=== PATIENT | male | born 1955 | race Caucasian/White ===

== ENCOUNTER 2016-05-18 09:22 | Day surgery (SDC) | payer BC ==
[2016-05-16 15:33] VITALS: BMI 25.1
[~2016-05-18 09:22] MED LIST: DEXAMETHASONE SOD PHOSPHATE 10 MG/ML 1 ML VIAL IV ONE; DEXAMETHASONE SOD PHOSPHATE 4 MG/ML 1 ML VIAL IV ONE; FAMOTIDINE 20 MG/2 ML VIAL IV ONE; HYDROmorphone 1 MG/ML 1 ML SYRINGE IVP PRN; LACTATED RINGERS 1,000 ML IV SCH; LIDOCAINE 1% 20 ML VIAL (10MG/ML) FOR IV START INTRADERMA PRN; MIDAZOLAM 2 MG/2 ML VIAL IV PRN; ONDANSETRON 4 MG/2 ML VIAL IVP ONE; SCOPOLAMINE 1.5MG/72HR PATCH TRANSDERM ONE
[2016-05-18] MEDS ORDERED: MIDAZOLAM 2 MG/2 ML VIAL ONE (11:29)
[2016-05-18] MEDS ORDERED: fentaNYL (PF) 50 MCG/ML 2 ML AMP ONE (11:29)
[2016-05-18] MEDS ORDERED: LIDOCAINE 1% INJ 10MG/ML (20 ML MDV) ONE (11:29)
[2016-05-18] MEDS ORDERED: SUCCINYLCHOLINE CHLORIDE 100 MG/5 ML SYR IV ONE (11:29)
[2016-05-18] MEDS ORDERED: PROPOFOL 10 MG/ML 20 ML VIAL IV ONE (11:29)
--- NOTE | 2016-05-18 11:55 | P.OP ---
Date of Procedure: 05/18/16 Preoperative Diagnosis: Epiglottis tumor Postoperative Diagnosis: Same Procedure(s) Performed: Direct laryngoscopy with biopsy epiglottis Anesthesia: LEN Surgeon: John Romano Estimated Blood Loss (ml): 20 Pathology: other (Epiglottis biopsy) Condition: stable Disposition: PACU Indications for Procedure: Is a 60-year-old white male who has had some sore throat and throat clearing symptoms was noted to have an epiglottis lesion on flexible laryngoscopy in the office. Computed tomography scan also shows this. This is suspicious for malignancy. Operative Findings: Large epiglottis tumor Description of Procedure: The patient was brought in the operative suite and placed in a supine position. The patient had attempted intubation with the glide scope as well as with direct laryngoscopy by the anesthesiologist and due to the size of the tumor and bleeding was unable to be intubated. A biopsy was able to be obtained however by the anesthesiologist off of the epiglottis. Due to the inability to visualize the glottis it was elected to not proceed any further as a biopsy was obtained and staging otherwise could be obtained based on the computed tomography scan. The patient was therefore allowed to emerge from general anesthesia having tolerated procedure well otherwise. He was Not noted to have any particular airway issues and therefore it was not felt that a tracheostomy was necessary. He will be monitored in the postop recovery area. The patient was transported to postop recovery area in satisfactory condition.
[2016-05-18 12:12] VITALS: RESP 16; TEMP 97
[2016-05-18 13:34] VITALS: PULSE 62
[2016-05-18 13:53] VITALS: BP 156/86
--- NOTE | 2016-05-23 12:20 | CDI ---
According to the Official Guidelines for Coding and Reporting, in the outpatient setting diagnosis documented as a probable or suspected condition needs further clarification. Mr. Leavitt was seen on 05/18 for a biopsy of an epiglottis tumor. 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 Please clarify for proper reporting purposes. 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 If you have any questions about this query, you may contact Electron Gun Inspector, Mckenzie Jean at between 8am and 6pm Monday-Monday. Thank you for your time. SALLY Johnson
== END 2016-05-18 14:25 | disposition home or self-care (01) ==
LOC: OR 09:22
PROVIDERS: ATTEND Otolaryngology
DX: C32.1 Malignant neoplasm of supraglottis (principal); Z95.5 Presence of coronary angioplasty implant and graft; Z87.891 Personal history of nicotine dependence; Z79.52 Long term (current) use of systemic steroids; Z79.899 Other long term (current) drug therapy; J30.9 Allergic rhinitis, unspecified
CPT/HCPCS: 31535; 88305; J2250; J1100; J2405; J2001; J3010; J0330; J2704

== ENCOUNTER → 2019-01-23 | Day surgery (SDC) | payer BC, MEDICARE ==
[2019-01-21 15:12] VITALS: BMI 27.9
[~2019-01-23] MED LIST changes: -DEXAMETHASONE SOD PHOSPHATE 10 MG/ML 1 ML VIAL IV ONE; -DEXAMETHASONE SOD PHOSPHATE 4 MG/ML 1 ML VIAL IV ONE; -FAMOTIDINE 20 MG/2 ML VIAL IV ONE; -HYDROmorphone 1 MG/ML 1 ML SYRINGE IVP PRN; -LIDOCAINE 1% 20 ML VIAL (10MG/ML) FOR IV START INTRADERMA PRN; -MIDAZOLAM 2 MG/2 ML VIAL IV PRN; -ONDANSETRON 4 MG/2 ML VIAL IVP ONE; +PROPOFOL 10 MG/ML 20 ML VIAL IV ONE; -SCOPOLAMINE 1.5MG/72HR PATCH TRANSDERM ONE
[2019-01-23 12:03] VITALS: TEMP 97.6
--- NOTE | 2019-01-23 13:00 | P.PCN ---
Date of Procedure: 01/23/19 Procedure(s) Performed: BRIEF HISTORY: Patient is a 63-year-old pleasant male scheduled for an elective colonoscopy as a part of evaluation of positive cologuard' PROCEDURE PERFORMED: Colonoscopy with biopsy and snare polypectomy. PREOPERATIVE DIAGNOSIS: Positive cologuard. IV sedation per Anesthesia. PROCEDURE: After informed consent was obtained, the patient, was brought into the endoscopy unit. IV sedation was administered by Anesthesia under continuous monitoring. Digital rectal examination was normal. Initially the Olympus CF-160 flexible video colonoscope was then inserted in the rectum, gradually advanced into the cecum without any difficulty. Careful examination was performed as the scope was gradually being withdrawn. Ileocecal valve and the appendiceal orifice were visualized and appeared normal. Prep was excellent. The 2 mm cecal polyp that was removed by cold biopsy. In the ascending colon there was a 5 limited polyp removed by snare polypectomy. In the sigmoid: There was another 5 mm polyp removed by snare polypectomy. Rest of the mucosa of the cecum, ascending colon, transverse colon, descending colon, sigmoid colon, and rectum appeared normal. Retroflexion was performed in the rectum and no lesions were seen. The patient tolerated the procedure well. IMPRESSION: 2 mm cecal polyp status post cold biopsy 5 mm ascending colon polyp status post snare polypectomy 5 mm; sigmoid polyp status post polypectomy RECOMMENDATIONS: Findings of this examination were discussed with the patient as well as his family. He was advised to follow with the biopsy results. If the biopsy shows an adenoma he can have a repeat colonoscopy in 5 years.
[2019-01-23 13:25] VITALS: RESP 16
[2019-01-23 13:34] VITALS: BP 130/76; PULSE 68
== END | disposition home or self-care (01) ==
LOC: ORWHC2ENDO 11:21
PROVIDERS: ATTEND Internal Medicine Gastroenterology
DX: D12.0 Benign neoplasm of cecum (principal); D12.2 Benign neoplasm of ascending colon; D12.5 Benign neoplasm of sigmoid colon; K62.1 Rectal polyp; I25.10 Atherosclerotic heart disease of native coronary artery without angina pectoris; I10 Essential (primary) hypertension; E78.5 Hyperlipidemia, unspecified; Z87.891 Personal history of nicotine dependence; Z79.899 Other long term (current) drug therapy
CPT/HCPCS: 88305; 45380; 45385; J2704

== ENCOUNTER → 2022-02-08 | Outpatient (CLI) | payer BC, MEDICARE | END | disposition home or self-care (01) | LOC: LABWHC1 14:38 | PROVIDERS: ATTEND Surgery Plastic and Reconstructive Surgery | DX: I11.0 Hypertensive heart disease with heart failure (principal) | CPT/HCPCS: 36415; 93005 ==